=== PATIENT | female | born 1970 | race Caucasian/White ===

== ENCOUNTER → 2020-07-07 | Outpatient (CLI) | payer OTHER | LOC: ECHO 12:59 | DX: R41.0 Disorientation, unspecified (principal); I65.23 Occlusion and stenosis of bilateral carotid arteries | CPT/HCPCS: ECHO; 70551; 93306; 93880 ==

== ENCOUNTER 2020-09-20 13:40 | Emergency (ER) | payer OTHER | END 2020-09-20 13:42 | disposition left against medical advice (07) | LOC: ER1 13:40 | DX: Z53.21 Procedure and treatment not carried out due to patient leaving prior to being seen by health care provider (principal) ==